=== PATIENT | female | born 1990 | race Caucasian/White ===

== ENCOUNTER 2019-05-25 09:20 | Emergency (ER) | payer SELFPAY ==
--- NOTE | 2019-05-25 09:53 | EDM.PDOC ---
ED HPI GENERAL MEDICAL PROBLEM - General Chief Complaint: General Stated Complaint: MULTIPLE ISSUES Time Seen by Provider: 05/25/19 09:29 Source of Information: Reports: Patient, RN Notes Reviewed History Limitations: Reports: No Limitations - History of Present Illness INITIAL COMMENTS - FREE TEXT/NARRATIVE: Patient is a 28-year-old female who presents to the ED for a few different complaints. Patient most recently moved here from [place], and arrived in [place] last night. Patient notes she has been having some intermittent chest pain that radiates into the back and into her right arm, for around 1 month now. Patient notes that her back pain in the upper part of her back is mostly chronic, and is not worse than it normally is. Patient denies any shortness of breath with any sort of pain. She does note that on the drive from [place] to [place], she was nauseous for most of this, and was expecting her., But this did not show up in a timely fashion, so she took a urine home test this morning, and this was positive, but also states that her urine was cloudy, at but not foul-smelling. She denies any dysuria, urinary frequency or urgency. She would like to have a test done to establish here. She also notes that in June 2018, she took 90 tablets of 500 mg Tylenol in an attempt to end her life. Patient notes she has had lingering liver issues from then, so was wondering about having her levels checked to make sure that is okay as well. Patient notes that when she was in [place], she did not have a primary care provider, she was the ER for most of her medical problems. She notes that she knows that if she is , she will have to establish care, and she will do so this week. Middle Chest Pain Score (Numeric/FACES): 6 - Related Data Allergies Allergy/AdvReac Type Severity Reaction Status Date / Time morphine Allergy Facial Verified 05/25/19 09:34 Swelling Home Meds: Home Meds Ondansetron [Zofran ODT] 4 mg PO Q8H PRN #15 tab.dis 05/25/19 [Rx] cephALEXin [Cephalexin] 500 mg PO BID #20 capsule 05/25/19 [Rx] Past Medical History HEENT History: Reports: None Cardiovascular History: Reports: None Respiratory History: Reports: None Other Gastrointestinal History: Pt had an OD on Tylenol in June 2018, has had liver issues since then. Genitourinary History: Reports: UTI, Recurrent GENERAL STORE MANAGER History: Reports: , Spontaneous , Therapeutic Musculoskeletal History: Reports: Back Pain, Chronic Neurological History: Reports: None Psychiatric History: Reports: Anxiety, Bipolar, Depression, Suicide Attempt, Suicidal Ideation Endocrine/Metabolic History: Reports: None Hematologic History: Reports: None Immunologic History: Reports: None Oncologic (Cancer) History: Reports: None Dermatologic History: Reports: None - Infectious Disease History Infectious Disease History: Reports: None - Past Surgical History GI Surgical History: Reports: Appendectomy Social & Family History - Tobacco Use Smoking Status *Q: Current Some Day Smoker Years of Tobacco use: 15 Packs/Tins Daily: 0.2 - Caffeine Use Caffeine Use: Reports: Energy Drinks - Recreational Drug Use Recreational Drug Use: No ED ROS GENERAL - Review of Systems Review Of Systems: See Below Constitutional: Denies: Fever, Chills Cardiovascular: Reports: Chest Pain (Right side chest discomfort) GI/Abdominal: Reports: Nausea ( she thinks it is morning sickness, she feels fine now), Vomiting (a few episodes in the last few days in the AM). Denies: Abdominal Pain : Denies: Dysuria, Frequency, Hematuria, Pain, Urgency Neurological: Denies: Headache ED EXAM, GENERAL - Physical Exam Exam: See Below Exam Limited By: No Limitations General Appearance: Alert, WD/WN, No Apparent Distress Eye Exam: Bilateral Eye: EOMI, Normal Inspection, PERRL Throat/Mouth: Normal Inspection, Normal Lips, Normal Teeth, Normal Gums, Normal Oropharynx, Normal Voice, No Airway Compromise Head: Atraumatic, Normocephalic Neck: Normal Inspection Respiratory/Chest: No Respiratory Distress, Lungs Clear, Normal Breath Sounds, No Accessory Muscle Use, Other (Right chest tender around 3-4th rib, this does reproduce the pain she has been having) Cardiovascular: Normal Peripheral Pulses, Regular Rate, Rhythm, No Edema, No Murmur Peripheral Pulses: 3+: Radial (L), Radial (R) GI/Abdominal: Normal Bowel Sounds, Soft, Non-Tender, No Distention, No Mass Extremities: Normal Inspection, Normal Capillary Refill Neurological: Alert, Oriented, Normal Cognition, No Motor/Sensory Deficits Psychiatric: Normal Affect, Normal Mood Skin Exam: Warm, Dry, Intact, Normal Color, No Rash Course - Vital Signs Last Recorded V/S: Last Vital Signs Temp 97.1 F 05/25/19 09:29 Pulse 97 05/25/19 09:29 Resp 16 05/25/19 09:29 BP 119/93 H 05/25/19 09:29 Pulse Ox 98 05/25/19 09:29 - Orders/Labs/Meds Orders: Active Orders 24 hr Category Date Time Status CULTURE URINE [RM] Routine Lab 05/25/19 10:58 Ordered Labs: Laboratory Tests 05/25/19 05/25/19 05/25/19 Range/Units 10:10 10:10 10:10 WBC (3.98-10.04) K/mm3 RBC (3.98-5.22) M/mm3 Hgb (11.2-15.7) gm/dl Hct (34.1-44.9) % MCV (79.4-94.8) fl MCH (25.6-32.2) pg MCHC (32.2-35.5) g/dl RDW Std Deviation (36.4-46.3) fL Plt Count (182-369) K/mm3 MPV (9.4-12.3) fl Neut % (Auto) (34.0-71.1) % Lymph % (Auto) (19.3-51.7) % [place] % (Auto) (4.7-12.5) % Eos % (Auto) (0.7-5.8) Baso % (Auto) (0.1-1.2) % Neut # (Auto) (1.56-6.13) K/mm3 Lymph # (Auto) (1.18-3.74) K/mm3 [place] # (Auto) (0.24-0.36) K/mm3 Eos # (Auto) (0.04-0.36) K/mm3 Baso # (Auto) (0.01-0.08) K/mm3 PT 9.9 (9.7-12.0) SECONDS INR < 0.93 APTT 23 (22-31) SECONDS Sodium 139 (136-145) mEq/L Potassium 4.2 (3.5-5.1) mEq/L Chloride 104 (98-107) mEq/L Carbon Dioxide 26 (21-32) mEq/L Anion Gap 13.2 (5-15) BUN 11 (7-18) mg/dL Creatinine 0.7 (0.55-1.02) mg/dL Est Cr Clr Drug Dosing 120.70 mL/min Estimated GFR (MDRD) > 60 (>60) mL/min BUN/Creatinine Ratio 15.7 (14-18) Glucose 87 (74-106) mg/dL Calcium 8.8 (8.5-10.1) mg/dL Total Bilirubin 0.4 (0.2-1.0) mg/dL AST 23 (15-37) U/L ALT 48 (14-59) U/L Alkaline Phosphatase 58 (46-116) U/L Total Protein 6.5 (6.4-8.2) g/dl Albumin 3.2 L (3.4-5.0) g/dl Globulin 3.3 gm/dL Albumin/Globulin Ratio 1.0 (1-2) HCG, Qual (NEGATIVE) HCG, Quant 162.0 mIU/mL Urine Color Yellow (Yellow) Urine Appearance Clear (Clear) Urine pH 7.5 (5.0-8.0) Ur Specific [place] 1.025 (1.005-1.030) Urine Protein Negative (Negative) Urine Glucose (UA) Negative (Negative) Urine Ketones Negative (Negative) Urine Occult Blood Trace-intact H (Negative) Urine Nitrite Negative (Negative) Urine Bilirubin Negative (Negative) Urine Urobilinogen 0.2 (0.2-1.0) Ur Leukocyte Esterase 1+ H (Negative) Urine RBC 5-10 H (0-5) /hpf Urine WBC 10-20 H (0-5) /hpf Ur Squamous Epith Cells 0-5 (0-5) /hpf Urine Bacteria Moderate H (FEW) /hpf Urine Mucus Few (FEW) /hpf 05/25/19 05/25/19 Range/Units 10:10 10:18 WBC 8.96 (3.98-10.04) K/mm3 RBC 4.67 (3.98-5.22) M/mm3 Hgb 14.3 (11.2-15.7) gm/dl Hct 43.5 (34.1-44.9) % MCV 93.1 (79.4-94.8) fl MCH 30.6 (25.6-32.2) pg MCHC 32.9 (32.2-35.5) g/dl RDW Std Deviation 43.0 (36.4-46.3) fL Plt Count 298 (182-369) K/mm3 MPV 10.4 (9.4-12.3) fl Neut % (Auto) 69.9 (34.0-71.1) % Lymph % (Auto) 19.8 (19.3-51.7) % [place] % (Auto) 7.9 (4.7-12.5) % Eos % (Auto) 1.9 (0.7-5.8) Baso % (Auto) 0.2 (0.1-1.2) % Neut # (Auto) 6.26 H (1.56-6.13) K/mm3 Lymph # (Auto) 1.77 (1.18-3.74) K/mm3 [place] # (Auto) 0.71 H (0.24-0.36) K/mm3 Eos # (Auto) 0.17 (0.04-0.36) K/mm3 Baso # (Auto) 0.02 (0.01-0.08) K/mm3 PT (9.7-12.0) SECONDS INR APTT (22-31) SECONDS Sodium (136-145) mEq/L Potassium (3.5-5.1) mEq/L Chloride (98-107) mEq/L Carbon Dioxide (21-32) mEq/L Anion Gap (5-15) BUN (7-18) mg/dL Creatinine (0.55-1.02) mg/dL Est Cr Clr Drug Dosing mL/min Estimated GFR (MDRD) (>60) mL/min BUN/Creatinine Ratio (14-18) Glucose (74-106) mg/dL Calcium (8.5-10.1) mg/dL Total Bilirubin (0.2-1.0) mg/dL AST (15-37) U/L ALT (14-59) U/L Alkaline Phosphatase (46-116) U/L Total Protein (6.4-8.2) g/dl Albumin (3.4-5.0) g/dl Globulin gm/dL Albumin/Globulin Ratio (1-2) HCG, Qual Positive H (NEGATIVE) HCG, Quant mIU/mL Urine Color (Yellow) Urine Appearance (Clear) Urine pH (5.0-8.0) Ur Specific [place] (1.005-1.030) Urine Protein (Negative) Urine Glucose (UA) (Negative) Urine Ketones (Negative) Urine Occult Blood (Negative) Urine Nitrite (Negative) Urine Bilirubin (Negative) Urine Urobilinogen (0.2-1.0) Ur Leukocyte Esterase (Negative) Urine RBC (0-5) /hpf Urine WBC (0-5) /hpf Ur Squamous Epith Cells (0-5) /hpf Urine Bacteria (FEW) /hpf Urine Mucus (FEW) /hpf - Re-Assessments/Exams Free Text/Narrative Re-Assessment/Exam: 05/25/19 09:54 Patient presents to the ED for evaluation of multiple complaints. We will check qualitative and quantitative hCG, urinalysis, CBC with auto differential, CMP, and coagulation studies. Patient is not complaining of much, and was worried more about establishing . Will likely have her follow-up with primary care GENERAL STORE MANAGER for further management if she is indeed positive for . 05/25/19 11:26 Nurse informs me that the patient is having a small anxiety attack in the room, would like to leave the ER before all lab evaluation is done. At this time clinically she has a UTI she will be starting Keflex twice daily, and she will be given some Zofran for morning sickness, she will have to follow-up with a OB/ GEOCHEMICAL LABORATORY TECHNICIAN of choice. I will call the patient with other labs as they result. Patient requests that her friend be called, as her cell phone are shut off at this time. The friend's name is Cullen, and his number is [phone]. 05/25/19 11:46 hCG is done and resulted at 162, which places her at roughly 3 to 4 weeks , and the metabolic panel is within normal limits. Departure - Departure Time of Disposition: 11:27 Disposition: Home, Self-Care 01 Condition: Fair Clinical Impression: UTI, Urinary tract infectious disease Qualifiers: Weeks of gestation: less than 8 weeks Qualified Code(s): Z3A.01 - Less than 8 weeks gestation of - Discharge Information *PRESCRIPTION DRUG MONITORING PROGRAM REVIEWED*: No *COPY OF PRESCRIPTION DRUG MONITORING REPORT IN PATIENT MARK: No Prescriptions: cephALEXin [Cephalexin] 500 mg PO BID #20 capsule Ondansetron [Zofran ODT] 4 mg PO Q8H PRN #15 tab.dis PRN Reason: Nausea Instructions: First Trimester of , [id number], Urinary Tract Infection, Adult, [id number] Referrals: PCP,None [Primary Care Provider] - Forms: ED Department Discharge Additional Instructions: You were evaluated in the ER today regarding your multiple complaints. Your chest pain is most likely due to costochondritis, this is an inflammation of the rib lining sputum. You may take some [id number] Tylenol if you should choose to do so for further pain relief. Do not exceed 4000 mg in a 24- hour time span. You did test clinically positive for by your blood test today, hCG level is pending, you will be called with results of this. You are likely 4 to 6 weeks due to your history of last menstrual period around . Urinalysis demonstrated that you have a slight UTI, you will be started on antibiotics for this, please take as directed. This will be sent for culture to make sure that the antibiotic we picked is effective for the bug that is causing your UTI. You will be called and made notified if you should need a change in antibiotics. You were given some tablets of an antinausea medication called Zofran, please use every 8 hours as needed for nausea. Will need to establish care with an GENERAL STORE MANAGER of choice, our [facility] clinic number is [phone], the [place] clinic number is [phone]. Please return to the ER at any time if your symptoms change or worsen. Sepsis Event Note - Evaluation Sepsis Screening Result: No Definite Risk - Focused Exam Vital Signs: Vital Signs Temp Pulse Resp BP Pulse Ox 05/25/19 09:29 97.1 F 97 16 119/93 H 98 Date Exam was Performed: 05/25/19 Time Exam was Performed: 11:46 - My Orders Last 24 Hours: My Active Orders 05/25/19 10:58 CULTURE URINE [RM] Routine - Assessment/Plan Last 24 Hours: My Active Orders 05/25/19 10:58 CULTURE URINE [RM] Routine
== END 2019-05-25 11:39 | disposition home or self-care (01) ==
LOC: JD.ED 09:20
DX: O23.41 Unspecified infection of urinary tract in pregnancy, first trimester (principal); O99.331 Smoking (tobacco) complicating pregnancy, first trimester; F17.210 Nicotine dependence, cigarettes, uncomplicated; Z88.5 Allergy status to narcotic agent; Z3A.01 Less than 8 weeks gestation of pregnancy
CPT/HCPCS: 36415; 80053; 81001; 84702; 84703; 85025; 85610; 85730; 87086; 99283; 99284